=== PATIENT | female | born 1975 | race Two or more races ===

== ENCOUNTER 2021-03-02 08:13 | Emergency (ER) | payer OTHER ==
[~2021-03-02] VITALS: Ht 167.6 cm; Wt 86.2 kg
== END 2021-03-02 11:54 | disposition home or self-care (01) ==
LOC: ER 08:13
DX: B34.9 Viral infection, unspecified (principal); Z11.52 Encounter for screening for COVID-19

== ENCOUNTER 2022-06-23 10:16 | Emergency (ER) | payer OTHER ==
[~2022-06-23] VITALS: Ht 160 cm; Wt 89.8 kg
[2022-06-23] MEDS ORDERED: MEDROLPACK PO (11:54)
[2022-06-23] MEDS ORDERED: ZITHROMAX500 MG PO (11:54)
[2022-06-23] MEDS ORDERED: TUSSI PRES-B L480 ML PO (11:54)
== END 2022-06-23 12:00 | disposition home or self-care (01) ==
LOC: ER 10:16
DX: U07.1 COVID-19 (principal)

== ENCOUNTER 2024-06-27 07:42 | Emergency (ER) | payer OTHER ==
[~2024-06-27] VITALS: Ht 162.6 cm; Wt 93.0 kg
[~2024-06-27 07:42] MED LIST: MEDROLPACK PO; TUSSI PRES-B L480 ML PO; ZITHROMAX500 MG PO
== END 2024-06-27 09:20 | disposition home or self-care (01) ==
LOC: ER 07:43
DX: U07.1 COVID-19 (principal)